=== PATIENT | male | born 1975 | race Caucasian/White ===

== ENCOUNTER 2017-04-04 19:00 | Emergency (ER) | payer OTHER ==
[2017-04-04 20:02] LABS: microscopic required? NO
[2017-04-04 20:27] LABS: BASOPHIL % 0.5 % (0-2); PLATELET COUNT 167 x10^3mcL (130-400); RED CELL DISTRIBUTION WIDTH 12.6 % (11.5-14.5)
[2017-04-04 20:30] LABS: UA SPECIFIC GRAVITY <=1.005 (1.005-1.035); urine erythrocyte NEGATIVE (NEGATIVE)
[2017-04-04 20:40] LABS: CALCIUM 8.7 mg/dL (8.5-10.1); CHLORIDE SERUM 104 mmol/L (98-107); CREATININE SERUM 0.9 mg/dL (0.7-1.3); GFR1 > 60 mL/min; GLUCOSE SERUM 91 mg/dL (74-106); POTASSIUM SERUM 3.6 mmol/L (3.5-5.1); SODIUM SERUM 142 mmol/L (136-145)
[2017-04-04 20:44] LABS: ALBUMIN 4.4 g/dL (3.4-5.0); ALKALINE PHOSPHATASE 90 U/L (46-116); ALT/SGPT 85 U/L (16-63); AST/SGOT 25 U/L (15-37); BILIRUBIN TOTAL 0.89 mg/dL (0.20-1.00); CHOLESTEROL 200 mg/dL (<200); CHOLESTEROL/HDL RATIO 4.2; HDL CHOLESTEROL 48 mg/dL (40-60); LIPASE 146 IU/L (73-393); TOTAL PROTEIN, SERUM 7.6 g/dL (6.4-8.2); TRIGLYCERIDES 81 mg/dL (<150)
[2017-04-04 20:54] LABS: T3 TOTAL 1.1 ng/mL
[2017-04-04 20:57] LABS: FREE T4 1.37 ng/dL (0.76-1.46); FREE THYROXINE INDEX 3.6 ug/dL (1.4-4.5); T4(THYROXINE) 9.9 ug/dL (4.7-13.3)
[2017-04-04 22:26] VITALS: BP 144/81
== END 2017-04-04 22:26 | disposition home or self-care (01) ==
LOC: ED 19:00
PROVIDERS: Specialist
DX: R07.9 Chest pain, unspecified (principal); R03.0 Elevated blood-pressure reading, without diagnosis of hypertension
CPT/HCPCS: 83880; 84439; J0360; J7030; Q0092